=== PATIENT | female | born 1965 | race Caucasian/White ===

== ENCOUNTER → 2021-07-14 | Outpatient (CLI) | payer BC | LOC: WOUNDCARE 14:18 | PROVIDERS: ATTEND Surgery | DX: E11.621 Type 2 diabetes mellitus with foot ulcer (principal); E11.42 Type 2 diabetes mellitus with diabetic polyneuropathy; L97.522 Non-pressure chronic ulcer of other part of left foot with fat layer exposed; E11.65 Type 2 diabetes mellitus with hyperglycemia; I70.245 Atherosclerosis of native arteries of left leg with ulceration of other part of foot | CPT/HCPCS: 11042 ==

== ENCOUNTER 2022-09-23 15:14 | Emergency (ER) | payer BC ==
[~2022-09-23] VITALS: Ht 167 cm; Wt 85.2 kg
--- NOTE | 2022-09-23 15:58 | Diagnostic Imaging Report ---
HISTORY: Pain and swelling in the left foot. TECHNIQUE: Three views of the left foot. COMPARISON: None. FINDINGS: No acute fracture or dislocation is seen in the left foot. Alignment appears normal. Joint spaces are preserved. No cortical erosions are seen. There is focal soft tissue swelling and laceration plantar and lateral to the fifth metatarsal head. There appear to be punctate associated hyperdensities. IMPRESSION: 1. Soft tissue swelling and laceration near the left fifth metatarsal head. Adjacent punctate hyperdensities may represent foreign bodies or overlying debris. 2. No acute osseous abnormality is seen in the left foot. Dictated by: Dictated on workstation # [id number]
[2022-09-23 16:20] LABS: BASOPHILS % (AUTO) 0 % (0-10); EOSINOPHILS # (AUTO) 0.1 10^3/uL (0.0-0.3); EOSINOPHILS % (AUTO) 1 % (0-10); HEMATOCRIT 43 % (35-52); HEMOGLOBIN 14.6 g/dL (11.5-16.0); LYMPHOCYTES # (AUTO) 2.9 10^3/uL (1.0-4.0); LYMPHOCYTES % (AUTO) 26 % (12-44); MEAN CORPUSCULAR HEMOGLOBIN 30 pg (25-34); MEAN CORPUSCULAR HGB CONC 34 g/dL (32-36); MEAN CORPUSCULAR VOLUME 87 fL (80-99); MEAN PLATELET VOLUME 9.6 fL (9.0-12.2); MONOCYTES # (AUTO) 0.6 10^3/uL (0.0-1.0); MONOCYTES % (AUTO) 5 % (0-12); NEUTROPHILS # (AUTO) 7.7 10^3/uL (1.8-7.8); NEUTROPHILS % (AUTO) 68 % (42-75); PLATELET COUNT 291 10^3/uL (130-400); WHITE BLOOD COUNT 11.4 10^3/uL (4.3-11.0)
[2022-09-23 16:23] LABS: ALBUMIN 3.6 GM/DL (3.2-4.5); POTASSIUM 3.9 MMOL/L (3.6-5.0)
[2022-09-23 16:25] LABS: CALCIUM 9.6 MG/DL (8.5-10.1)
[2022-09-23 16:26] LABS: TOTAL PROTEIN 7.3 GM/DL (6.4-8.2)
[2022-09-23 16:28] LABS: BILIRUBIN,TOTAL 0.2 MG/DL (0.1-1.0)
[2022-09-23 16:29] LABS: CREATININE SERUM 1.13 MG/DL (0.60-1.30)
--- NOTE | 2022-09-23 16:40 | ED Lower Extremity ---
General Chief Complaint: Lower Extremity Stated Complaint: LEFT FOOT PAIN Nursing Triage Note: PT AMBULATORY TO ER. PT C/O L FOOT PAIN, ONSET 4 DAYS AGO, NON-TRAUMATIC. PT REPORTS NOTICED BLISTERS ON THAT FOOT YESTERDAY, REPORTS WERE MORE RED IN COLOR TODAY, STATES TODAY LOOK MORE PURPLE IN COLOR. PT DOES HAVE A HX OF DIABETES, REPORTS NON-COMPLIANT WITH HER DIABETES, DOES NOT CHECK BLOOD SUGARS. Source: patient Exam Limitations: no limitations History of Present Illness Date Seen by Provider: Sep 23, 2022 Time Seen by Provider: 15:20 Initial Comments Patient is a 57-year-old female who presents to the emergency department for evaluation of pain, redness, and swelling to her left foot. She endorses a history of diabetes and admits poor compliance with medication regimen. Does not normally check her blood sugars. She states she has had an ulcer on the bottom of her left foot for approximately 1 year. She states she noticed the redness and some blisterlike lesions to her left heel a few days ago and these have progressively worsened. States she has had previous infections in the foot. Also endorses a history of neuropathy. She states the pain does radiate up her posterior left calf. No known injury to the foot in the recent past. Allergies and Home Medications Patient Home Medication List Home Medication List Reviewed: Yes Review of Systems Constitutional: no symptoms reported EENTM: no symptoms reported Respiratory: no symptoms reported Cardiovascular: no symptoms reported Gastrointestinal: no symptoms reported Genitourinary: no symptoms reported Musculoskeletal: see HPI Skin: see HPI Past Hscgceq-Bfkxof-Qbxjiq Hx Patient Social History Tobacco Use?: No Use of E-Cig and/or Vaping dev: No Substance use?: No Alcohol Use?: No Pt feels they are or have been: No Immunizations Up To Date First/Initial COVID19 Vaccinat: NO Physical Exam Vital Signs Vital Signs - First Documented 09/23/22 15:18 Temp 36.7 Pulse 97 Resp 12 B/P (MAP) 169/83 (111) Pulse Ox 97 O2 Delivery Room Air Capillary Refill : Height, Weight, BMI Height: '" Weight: lbs. oz. kg; 30.00 BMI Method: General Appearance: WD/WN, no apparent distress HEENT: PERRL/EOMI, normal ENT inspection, TMs normal, pharynx normal Neck: non-tender, full range of motion, supple, normal inspection Cardiovascular: regular rate, rhythm Respiratory: chest non-tender, lungs clear, normal breath sounds, no respiratory distress, no accessory muscle use Gastrointestinal: normal bowel sounds, non tender, soft, no organomegaly Feet: left foot infection, left foot pain, left foot soft tissue tenderness, left foot swelling Progress/Results/Core Measures Results/Orders Lab Results Laboratory Tests Test 09/23/22 16:00 Range/Units White Blood Count 11.4 H 4.3-11.0 10^3/uL Red Blood Count 4.94 3.80-5.11 10^6/uL Hemoglobin 14.6 11.5-16.0 g/dL Hematocrit 43 35-52 % Mean Corpuscular Volume 87 80-99 fL Mean Corpuscular Hemoglobin 30 25-34 pg Mean Corpuscular Hemoglobin Concent 34 32-36 g/dL Red Cell Distribution Width 13.3 10.0-14.5 % Platelet Count 291 130-400 10^3/uL Mean Platelet Volume 9.6 9.0-12.2 fL Immature Granulocyte % (Auto) 0 % Neutrophils (%) (Auto) 68 42-75 % Lymphocytes (%) (Auto) 26 12-44 % Monocytes (%) (Auto) 5 0-12 % Eosinophils (%) (Auto) 1 0-10 % Basophils (%) (Auto) 0 0-10 % Neutrophils # (Auto) 7.7 1.8-7.8 10^3/uL Lymphocytes # (Auto) 2.9 1.0-4.0 10^3/uL Monocytes # (Auto) 0.6 0.0-1.0 10^3/uL Eosinophils # (Auto) 0.1 0.0-0.3 10^3/uL Basophils # (Auto) 0.0 0.0-0.1 10^3/uL Immature Granulocyte # (Auto) 0.1 0.0-0.1 10^3/uL Sodium Level 135 135-145 MMOL/L Potassium Level 3.9 3.6-5.0 MMOL/L Chloride Level 95 L 98-107 MMOL/L Carbon Dioxide Level 26 21-32 MMOL/L Anion Gap 14 5-14 MMOL/L Blood Urea Nitrogen 13 7-18 MG/DL Creatinine 1.13 0.60-1.30 MG/DL Estimat Glomerular Filtration Rate 57 BUN/Creatinine Ratio 12 Glucose Level 324 H 70-105 MG/DL Calcium Level 9.6 8.5-10.1 MG/DL Corrected Calcium 9.9 8.5-10.1 MG/DL Total Bilirubin 0.2 0.1-1.0 MG/DL Aspartate Amino Transf (AST/SGOT) 17 5-34 U/L Alanine Aminotransferase (ALT/SGPT) 14 0-55 U/L Alkaline Phosphatase 119 40-136 U/L Total Protein 7.3 6.4-8.2 GM/DL Albumin 3.6 3.2-4.5 GM/DL My Orders Orders - QUAN PORRAS APRN Foot, Left, 3 Views (09/23/22 15:35) Comprehensive Metabolic Panel (09/23/22 15:51) Cbc With Automated Diff (09/23/22 15:51) Vital Signs/I&O 09/23/22 15:18 Temp 36.7 Pulse 97 Resp 12 B/P (MAP) 169/83 (111) Pulse Ox 97 O2 Delivery Room Air Blood Pressure Mean: 111 Progress Progress Note : Progress Note Patient is nontoxic and well-hydrated on exam. Vital signs reassuring. Exam of the left foot reveals some redness and swelling about the left heel as well as 2 small blisterlike lesions. She also has an ulcer to the lateral plantar aspect of the left foot. This is concerning for possible infectious process. X-rays were obtained that revealed no bony destruction. She has no historical labs here this a CBC and CMP were obtained. Kidney function is not markedly decreased thus she will be placed on Bactrim and Augmentin for treatment of any potential infectious process. Discussed importance of very close follow-up and monitoring of the area. If there is any marked worsening or lack of any improvement in 48 to 72 hours please return to the emergency department for further evaluation. Return precautions for urgent symptomology discussed. Patient verbalized understanding. Departure Impression Primary Impression: Diabetic infection of left foot Disposition: 01 HOME, SELF-CARE Condition: Stable Departure-Patient Inst. Decision time for Depature: 16:40 Referrals: NO,LOCAL PHYSICIAN (PCP/Family) Primary Care Physician Patient Instructions: Cellulitis (Skin Infection), Adult (DC) Scripts Hydrocodone Bit/Acetaminophen (HYDROcodone/APAP 5 MG/325 MG TAB) 1 Tab Tab 1 TAB PO Q6H PRN for PAIN-SEVERE (8-10) for 3 Days, #12 TAB 0 Refills Prov: QUAN PORRAS APRN 09/23/22 Amoxicillin/Potassium Clav (Amox Tr-K Clv 875-125 mg Tab) 875 Mg-125 Mg Tablet 1 EACH PO BID for 7 Days, #14 TAB 0 Refills Prov: QUAN PORRAS APRN 09/23/22 Sulfamethoxazole/Trimethoprim (Bactrim Ds Tablet) 800 Mg-160 Mg Tablet 2 EACH PO BID for 7 Days, #28 TAB 0 Refills Prov: QUAN PORRAS APRN 09/23/22 QUAN PORRAS APRN Sep 23, 2022 16:40
[2022-09-23] MEDS ORDERED: SULF-221 PO (16:47)
[2022-09-23] MEDS ORDERED: AMOX1TAB12 PO (16:47)
[2022-09-23] MEDS ORDERED: ACHD5005 PO (16:48)
[2022-09-23 16:49] VITALS: BP 128/81
== END 2022-09-23 16:49 | disposition home or self-care (01) ==
LOC: EDUNIT# 15:14 → ER 15:16
DX: E11.621 Type 2 diabetes mellitus with foot ulcer (principal); L97.529 Non-pressure chronic ulcer of other part of left foot with unspecified severity; Z28.310 Unvaccinated for COVID-19
CPT/HCPCS: 36415; 73630; 80053; 85025

== ENCOUNTER 2022-10-03 16:44 | Emergency (ER) | payer BC ==
[~2022-10-03] VITALS: Ht 167.7 cm; Wt 89.8 kg
[~2022-10-03 16:44] MED LIST: ACHD5005 PO; AMOX1TAB12 PO; SULF-221 PO
[2022-10-03] MEDS ORDERED: ACHD5005 PO (17:53)
[2022-10-03] MEDS ORDERED: CEPH500T PO (17:55)
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
[2022-10-03 18:06] VITALS: BP 162/83
== END 2022-10-03 18:06 | disposition home or self-care (01) ==
LOC: EDUNIT# 16:44 → ER 16:47
DX: E11.69 Type 2 diabetes mellitus with other specified complication (principal); L08.9 Local infection of the skin and subcutaneous tissue, unspecified
CPT/HCPCS: 99281

== ENCOUNTER → 2023-03-17 | Outpatient (CLI) | payer BC ==
[~2023-03-17] MED LIST changes: +CEPH500T PO; +GADOTERATE 0.5 MMOL/ML (CLARISCAN) 20 ML VIAL IV ONE
--- NOTE | 2023-03-17 16:25 | Diagnostic Imaging Report ---
PROCEDURE: MR imaging of the brain with and without contrast. TECHNIQUE: Multiplanar, multisequence MR imaging of the brain was performed with and without contrast. INDICATION: Memory loss. Prior abnormal brain MRI. COMPARISON: None. FINDINGS: Moderate nonspecific T2 hyperintensities in the supratentorial white matter compatible with chronic small vessel ischemic change. Mild generalized parenchymal volume loss. No abnormal intracranial enhancement. No restricted water diffusion. No hemosiderin deposition or evidence of intracranial hemorrhage. Normal morphology including the major midline structures, sella, posterior fossa and cerebellar pontine angle. Normal intracranial flow voids. No hydrocephalus or extra-axial fluid collections. Postoperative changes in the globes. Paranasal sinuses and mastoids are clear. Normal bone marrow signal. IMPRESSION: Moderate chronic small vessel ischemic change and mild generalized volume loss. No acute intracranial MRI findings. No priors were provided for comparison. Dictated by: Dictated on workstation # [id number]
== END ==
LOC: RAD 14:37
PROVIDERS: ATTEND Psychiatry & Neurology Neurology
DX: I67.82 Cerebral ischemia (principal); R20.2 Paresthesia of skin; R20.0 Anesthesia of skin
CPT/HCPCS: 70553

== ENCOUNTER → 2023-03-17 | Outpatient (CLI) | payer BC ==
[~2023-03-17] MED LIST changes: -GADOTERATE 0.5 MMOL/ML (CLARISCAN) 20 ML VIAL IV ONE
[2023-03-17 16:49] LABS: BASOPHILS % (AUTO) 0 % (0-10); EOSINOPHILS # (AUTO) 0.1 10^3/uL (0.0-0.3); EOSINOPHILS % (AUTO) 2 % (0-10); HEMATOCRIT 42 % (35-52); HEMOGLOBIN 14.2 g/dL (11.5-16.0); LYMPHOCYTES # (AUTO) 2.6 X 10^3 (1.0-4.0); LYMPHOCYTES % (AUTO) 34 % (12-44); MEAN CORPUSCULAR HEMOGLOBIN 30 pg (25-34); MEAN CORPUSCULAR HGB CONC 34 g/dL (32-36); MEAN CORPUSCULAR VOLUME 87 fL (80-99); MONOCYTES # (AUTO) 0.4 X 10^3 (0.0-1.0); MONOCYTES % (AUTO) 5 % (0-12); NEUTROPHILS # (AUTO) 4.5 X 10^3 (1.8-7.8); NEUTROPHILS % (AUTO) 59 % (42-75); PLATELET COUNT 268 10^3/uL (130-400); WHITE BLOOD COUNT 7.7 10^3/uL (4.3-11.0)
[2023-03-17 16:59] LABS: ALBUMIN 3.8 GM/DL (3.2-4.5); POTASSIUM 3.6 MMOL/L (3.6-5.0)
[2023-03-17 17:00] LABS: CALCIUM 9.2 MG/DL (8.5-10.1)
[2023-03-17 17:02] LABS: TOTAL PROTEIN 7.6 GM/DL (6.4-8.2)
[2023-03-17 17:04] LABS: BILIRUBIN,TOTAL 0.3 MG/DL (0.1-1.0)
[2023-03-17 17:05] LABS: CREATININE SERUM 1.22 MG/DL (0.60-1.30)
[2023-03-17 17:10] LABS: ERYTHROCYTE SEDIMENTATION RATE 37 MM/HR (0-30)
--- NOTE | 2023-03-17 17:33 | Diagnostic Imaging Report ---
INDICATION: POLYARTHRALGIA, FIBROMYALGIA. COMPARISON: None. FINDINGS: Multiple radiographic views of the bilateral hands were obtained and show no fractures, dislocations, or other acute bony abnormalities. Joint spaces are well maintained throughout. The soft tissues appear unremarkable. No unexpected radiopaque foreign bodies are identified. IMPRESSION: Unremarkable radiographic exam of the bilateral hands. Dictated by: Dictated on workstation # [id number]
--- NOTE | 2023-03-17 17:36 | Diagnostic Imaging Report ---
CLINICAL HISTORY: Bilateral ankle pain. COMPARISON: None. TECHNIQUE: Four views of the bilateral ankles. FINDINGS: There is no acute fracture or dislocation of the bilateral ankles. Alignment is anatomic. Degenerative changes are present in the ankles with marginal osteophytes. No suspicious focal osseous lesions. IMPRESSION: 1. No acute fracture or dislocation in the bilateral ankles. 2. Mild osteoarthritis in the ankles. In particular, bone spurs are seen along the plantar surface of the calcaneus and at the insertion site of the Achilles tendon. Dictated by: Dictated on workstation # [id number]
--- NOTE | 2023-03-17 17:48 | Diagnostic Imaging Report ---
FOOT, BILATERAL, 2 VIEWS INDICATION: Bilateral foot pain COMPARISON: None available. TECHNIQUE: 2 views of each foot for a total of 4 views FINDINGS: Normal osseous mineralization. There are no erosions or periarticular calcifications. No acute or healing fracture on either side. No soft tissue tophi are appreciated. There are likely small bunionettes on both sides. Moderate-sized dorsal calcaneal spurs on both sides. IMPRESSION: No structural changes of inflammatory or crystalline arthropathy. Dictated by: Dictated on workstation # [id number]
== END ==
LOC: RAD 15:52
PROVIDERS: ATTEND Internal Medicine
DX: M19.071 Primary osteoarthritis, right ankle and foot (principal); M19.072 Primary osteoarthritis, left ankle and foot; M77.32 Calcaneal spur, left foot; M77.31 Calcaneal spur, right foot; M79.7 Fibromyalgia; R76.9 Abnormal immunological finding in serum, unspecified
CPT/HCPCS: 36415; 80053; 82550; 82607; 83520; 84155; 84165; 84550; 85025; 85652; 86141; 86147; 86160; 86225; 86334; 86376

== ENCOUNTER → 2023-04-04 | Outpatient (CLI) | payer BC ==
--- NOTE | 2023-04-04 14:11 | Diagnostic Imaging Report ---
INDICATION: Body pain and joint pain. TECHNIQUE: The patient was administered 26.9 mCi of technetium 99m MDP intravenously and whole-body imaging was performed after a 3 hour delay. COMPARISON: No prior bone scans are available for comparison. FINDINGS: There is normal uptake of activity by the axial and appendicular skeleton. There is uptake by the kidneys with excretion into the urinary bladder. No suspicious foci are identified to suggest osseous metastatic disease. There is some mild generalized uptake involving the bilateral shoulders, bilateral knees, and bilateral ankles which may be degenerative. IMPRESSION: No scintigraphic evidence of osseous metastatic disease. Dictated by: Dictated on workstation # [id number]
== END ==
LOC: CARD 09:05
PROVIDERS: ATTEND Internal Medicine
DX: M51.37 Other intervertebral disc degeneration, lumbosacral region (principal); M96.1 Postlaminectomy syndrome, not elsewhere classified
CPT/HCPCS: 78306; A9503

== ENCOUNTER → 2023-04-04 | Outpatient (CLI) | payer BC ==
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
== END ==
LOC: RAD 09:04
PROVIDERS: ATTEND Anesthesiology Pain Medicine
DX: M51.17 Intervertebral disc disorders with radiculopathy, lumbosacral region (principal); M96.1 Postlaminectomy syndrome, not elsewhere classified; M47.816 Spondylosis without myelopathy or radiculopathy, lumbar region; Z98.890 Other specified postprocedural states
CPT/HCPCS: 72148

== ENCOUNTER 2023-06-24 14:37 | Emergency (ER) | payer BC ==
[~2023-06-24] VITALS: Ht 167.7 cm; Wt 87.7 kg
[2023-06-24] MEDS ORDERED: HYDROcodone/ACETAMINOPHEN 10/325 TABLET PO ONE (15:00)
--- NOTE | 2023-06-24 15:08 | ED Hip Pain/Injury ---
General Chief Complaint: Hip/Pelvic Problems Stated Complaint: LEFT HIP PAIN Nursing Triage Note: PT STATES SHE HAS AVN IN THE LEFT HIP AND HAS CHRONIC PAIN, IN THE PAST FEW DAYS HER PAIN HAS WORSENED, SHE ALMOST FELL YESTERDAY BUT CAUGHT HERSELF IS NOW HAVING TROUBLE MOVING AND WALKING. Source: patient Exam Limitations: no limitations History of Present Illness Date Seen by Provider: Jun 24, 2023 Time Seen by Provider: 14:49 Initial Comments 59-year-old female presents the ER with complaint of left hip pain. She states that she was diagnosed with avascular necrosis of the left hip in 1998, she was supposed to get a hip replacement, but did not want the surgery at that time. She states that last 06/16/2023, her hip went out from underneath her and she fell. She states she has had significant pain since then. She also reports significant increase in weakness in the leg since the fall. She has been taking her regular gabapentin as well as Tylenol for pain. She states this has not helped the pain. She went to [facility] yesterday and had an x-ray, but has not received the results. She says she is concerned due to the weakness in her leg. The pain is in her posterior left hip, she also has some pain to the left side of her spine. She thinks this pain is due to how she is walking, since she has been favoring her left hip. Allergies and Home Medications Allergies Coded Allergies: erythromycin base (Verified Allergy, Unknown, 10/03/22) Patient Home Medication List Home Medication List Reviewed: Yes Amoxicillin/Potassium Clav (Amox Tr-K Clv 875-125 mg Tab) 875 Mg-125 Mg Tablet, 1 EACH PO BID Prescribed by: Naseem Pérez on 09/23/22 1647 Cephalexin (Cephalexin) 500 Mg Tablet, 500 MG PO QID Prescribed by: ERMIAS CARRIZALES on 10/03/22 1755 Hydrocodone Bit/Acetaminophen (HYDROcodone/APAP 5 MG/325 MG TAB) 1 Tab Tab, 1 TAB PO Q6H PRN for PAIN-SEVERE (8-10) Prescribed by: Naseem Pérez on 09/23/22 1648 Hydrocodone/Acetaminophen (Hydrocodone-Acetamin 5-325 mg) 5 Mg-325 Mg Tablet, 1 TAB PO Q6H PRN for PAIN-MODERATE (5-7) Prescribed by: ERMIAS CARRIZALES on 10/03/22 1753 Hydrocodone/Acetaminophen (Hydrocodone-Acetamin 5-325 mg) 5 Mg-325 Mg Tablet, 1 TAB PO Q4H PRN for PAIN-MODERATE (5-7) Prescribed by: Letitia Perez on 06/24/23 1605 Sulfamethoxazole/Trimethoprim (Bactrim Ds Tablet) 800 Mg-160 Mg Tablet, 2 EACH PO BID Prescribed by: Naseem Pérez on 09/23/22 1647 Review of Systems Constitutional: see HPI Past Gfpkper-Dfwzhq-Wfzzpe Hx Patient Social History Tobacco Use?: No Substance use?: No Alcohol Use?: No Immunizations Up To Date First/Initial COVID19 Vaccinat: NO Second COVID19 Vaccination Mars: NO Third COVID19 Vaccination Date: NO Physical Exam Vital Signs Vital Signs - First Documented 06/24/23 14:44 Temp 36.7 Pulse 85 Resp 16 B/P (MAP) 174/107 (129) Pulse Ox 97 Capillary Refill : Height, Weight, BMI Height: '" Weight: lbs. oz. kg; 31.00 BMI Method: General Appearance: No Apparent Distress, WD/WN Neck: Normal Inspection, Supple Cardiovascular: Regular Rate, Rhythm Respiratory: Lungs Clear, Normal Breath Sounds, No Accessory Muscle Use, No Respiratory Distress Extremity: Normal Inspection, Other (Patient ambulated with steady gait, patient has significant difficulty lifting left leg off of bed) Neurologic/Psychiatric: Alert, Normal Mood/Affect Skin: Normal Color, Warm/Dry Progress/Results/Core Measures Results/Orders My Orders Orders - LETITIA VALERA APRN Pelvis With Left Hip 2-3 Views (06/24/23 14:57) Lidocaine 4% Patch (Salonpas 4% Patch) (06/25/23 09:00) Hydrocodone/Apap 10/325 Tablet (Hydrocod (06/24/23 15:00) Lidocaine 4% Patch (Salonpas 4% Patch) (06/24/23 15:30) Crutches (06/24/23 16:00) Medications Given in ED Current Medications Medications Dose Ordered Sig/Claribel Route Start Time Stop Time Status Last Admin Dose Admin Acetaminophen/ Hydrocodone Bitart 1 ea ONCE ONCE PO 06/24/23 15:00 06/24/23 15:02 DC 06/24/23 15:20 1 EA Vital Signs/I&O 06/24/23 06/24/23 14:44 16:18 Temp 36.7 36.7 Pulse 85 85 Resp 16 16 B/P (MAP) 174/107 (129) 174/107 Pulse Ox 97 97 Blood Pressure Mean: 129 Progress Progress Note : Progress Note Patient seen and evaluated, resting comfortably in bed, no acute distress. Patient was able to ambulate to room with steady gait. Patient was able to move both of her legs. When asked to have patient lift left leg off the bed, she had significant difficulty in doing this. X-ray of the left hip and pelvis ordered. Mary Alice ordered for pain. 1558 x-ray reviewed. It shows mild bilateral osteoarthritis. Results discussed with patient. Patient instructed that weakness is likely related to her osteonecrosis and osteoarthritis. Instructed to follow-up with orthopedics. Will discharge with prescription for Mary Alice. Offered crutches, patient stated that she would rather have a cane. We do not have a cane here. Patient is going to get this at [facility] or [facility]. Discharge instructions and return precautions provided. Diagnostic Imaging Diagonstic Imaging: Xray Plain Films/CT/US/NM/MRI: pelvis, hip Comments [facility], [place] NAME: [facility] REC#: [id number] PT STATUS: REG ER : 1965 PHYSICIAN: LETITIA VALERA APRN ADMIT DATE: 06/24/23/ER Signed Date of Exam:06/24/23 PELVIS WITH LEFT HIP 2-3 VIEWS EXAMINATION: Left hip unilateral 2 or 3 views (w/pelvis when done). HISTORY: Pelvic, hip pain. COMPARISON: None available. FINDINGS: There is mild bilateral hip osteoarthritis. No fracture. Alignment is normal. IMPRESSION: Mild bilateral hip osteoarthritis. Dictated by: Dictated on workstation # [id number] Dict: 06/24/23 1514 Trans: 06/24/23 1529 [facility] [id number] Interpreted by: FREDDIE GUTIERREZ MD Electronically signed by: FREDDIE GUTIERREZ MD 06/24/23 1529 Departure Impression Primary Impression: Left hip pain Additional Impression: Osteoarthritis Disposition: 01 HOME, SELF-CARE Condition: Stable Departure-Patient Inst. Decision time for Depature: 16:02 Referrals: LEI MOLINA MD, MICHAEL P MD Patient Instructions: Hip Pain ED Add. Discharge Instructions: Use the crutches or a cane to help you get around. Follow-up with orthopedics. Call them on Monday to schedule a follow-up appointment. Take Mary Alice as needed for pain, it may make you sleepy. Return for any new, concerning, or worsening symptoms. All discharge instructions reviewed with patient and/or family. Voiced unde rstanding. Scripts Hydrocodone/Acetaminophen (Hydrocodone-Acetamin 5-325 mg) 5 Mg-325 Mg Tablet 1 TAB PO Q4H PRN for PAIN-MODERATE (5-7), #15 TAB 0 Refills Prov: LETITIA VALERA APRN 06/24/23 LETITIA VALERA APRN Jun 24, 2023 15:08
--- NOTE | 2023-06-24 15:25 | Diagnostic Imaging Report ---
EXAMINATION: Left hip unilateral 2 or 3 views (w/pelvis when done). HISTORY: Pelvic, hip pain. COMPARISON: None available. FINDINGS: There is mild bilateral hip osteoarthritis. No fracture. Alignment is normal. IMPRESSION: Mild bilateral hip osteoarthritis. Dictated by: Dictated on workstation # [id number]
[2023-06-24] MEDS ORDERED: LIDOCAINE 4% PATCH TOP SCH (15:30)
[2023-06-24] MEDS ORDERED: ACHD5005 PO (16:04)
[2023-06-24 16:18] VITALS: BP 174/107
[2023-06-25] MEDS ORDERED: LIDOCAINE 4% PATCH TOP SCH (09:00)
== END 2023-06-24 16:20 | disposition home or self-care (01) ==
LOC: EDUNIT# 14:37 → ER 14:40
DX: M16.0 Bilateral primary osteoarthritis of hip (principal); Z28.310 Unvaccinated for COVID-19